=== PATIENT | male | born 1955 | race Caucasian/White ===

== ENCOUNTER → 2018-05-03 | Outpatient (CLI) | payer OTHER ==
[~2018-05-03] MED LIST: AMLO5TAB2 PO; GABA300C10 PO
[2018-05-03 13:46] LABS: BASOPHILS # (AUTO) 0.05 x10^3/uL (0-0.1); BASOPHILS % (AUTO) 1 % (0-1); EOSINOPHILS # (AUTO) 0.19 x10^3/uL (0-0.4); EOSINOPHILS % (AUTO) 3 % (1-7); LYMPHOCYTES # (AUTO) 1.69 x10^3/uL (1-3.4); LYMPHOCYTES % (AUTO) 26 % (22-44); MD NO; MEAN CORPUSCULAR HEMOGLOBIN 30.6 pg (27.5-34.5); MEAN CORPUSCULAR HGB CONC 34.1 g/dL (33.2-36.2); MEAN CORPUSCULAR VOLUME 89.7 fL (81-97); MEAN PLATELET VOLUME 9.1 fL (7.4-10.4); MONOCYTES # (AUTO) 0.76 x10^3/uL (0.2-0.8); MONOCYTES % (AUTO) 12 % (2-9); NEUTROPHILS # (AUTO) 3.75 x10^3/uL (1.8-6.8); NEUTROPHILS % (AUTO) 58 % (42-75); PLATELET COUNT 265 x10^3/uL (130-400); RED CELL DISTRIBUTION WIDTH 13.7 % (9.4-14.8)
[2018-05-03 13:55] LABS: INTERNATIONAL NORMALIZED RATIO 1.03 (0.93-1.1); PROTHROMBIN TIME 10.7 Seconds (9.6-11.5)
[2018-05-03 13:59] LABS: ALANINE AMINOTRANSFERASE 36 U/L (12-78); ANION GAP 7 mmol/L (5-15); CALCIUM 9.2 mg/dL (8.5-10.1); CHLORIDE 105 mmol/L (98-107); CREATININE 0.91 mg/dL (0.7-1.3)
[2018-05-03 14:01] LABS: ALKALINE PHOSPHATASE 91 U/L (45-117); BILIRUBIN,TOTAL 0.9 mg/dL (0.2-1.0); TOTAL PROTEIN 7.6 g/dL (6.4-8.2)
== END | disposition home or self-care (01) ==
LOC: STAR 12:29
PROVIDERS: ATTEND Neurological Surgery
DX: Z01.818 Encounter for other preprocedural examination (principal); M47.12 Other spondylosis with myelopathy, cervical region
CPT/HCPCS: 36415; 71046; 80053; 85025; 85610; 85730; 93005

== ENCOUNTER 2018-05-16 06:51 | Inpatient (IN) | payer OTHER ==
[~2018-05-16] VITALS: Ht 198.1 cm; Wt 126.6 kg
[2018-05-16] MEDS ORDERED: BUPIVACAINE/PF-EPI 0.5% 1:200K ONE (07:04)
[2018-05-16] MEDS ORDERED: BACITRACIN 50,000 UNIT ONE (07:04)
[2018-05-16] MEDS ORDERED: THROMBIN 5,000 UNIT VIAL TP ONE (07:04)
[2018-05-16] MEDS ORDERED: LACTATED RINGERS 1,000 ML IV SCH (07:56)
[2018-05-16] MEDS ORDERED: LIDOCAINE-MPF 1%, 2ML INFIL ONE (08:00)
[2018-05-16] MEDS ORDERED: LIDOCAINE-MPF 1%, 2ML ONE (08:04)
[2018-05-16] MEDS ORDERED: GABAPENTIN 300 MG CAPSULE PO ONE (09:00)
[2018-05-16] MEDS ORDERED: ACETAMINOPHEN 500 MG TABLET PO ONE (09:00)
[2018-05-16] MEDS ORDERED: MIDAZOLAM 1 MG/ML, 2ML ONE (09:05)
[2018-05-16] MEDS ORDERED: PROPOFOL 10 MG/ML, 20ML ONE ×2 (09:07→13:27)
[2018-05-16] MEDS ORDERED: FENTANYL PF 250 MCG/5ML ONE (09:07)
[2018-05-16] MEDS ORDERED: LIDOCAINE-MPF 2% ,5ML ONE (09:07)
[2018-05-16] MEDS ORDERED: CEFAZOLIN 1,000 MG ONE ×3 (09:08→10:29)
[2018-05-16] MEDS ORDERED: ROCURONIUM 10MG/ML,5ML ONE (09:09)
[2018-05-16] MEDS ORDERED: DEXAMETHASONE 4 MG/ML, 1ML ONE ×2 (09:10)
[2018-05-16] MEDS ORDERED: APREPITANT 40 MG CAPSULE ONE (10:11)
[2018-05-16] MEDS ORDERED: PROPOFOL 50 ML ONE ×3 (10:21→12:24)
[2018-05-16] MEDS ORDERED: REMIFENTANIL 1 MG ONE ×2 (10:24→11:57)
[2018-05-16] MEDS ORDERED: SUCCINYLCHOLINE 20 MG/ML, 10ML ONE (10:29)
[2018-05-16] MEDS ORDERED: ONDANSETRON 2MG/ML, 2ML ONE ×2 (13:24)
[2018-05-16] MEDS ORDERED: FENTANYL PF 100 MCG/2ML IV PRN (14:00)
[2018-05-16] MEDS ORDERED: OXYcodone 5 MG/5 ML ORAL.SOL UDC PO PRN (14:00)
[2018-05-16] MEDS ORDERED: LORazepam 2 MG/ML, 1ML IVPush PRN (14:00)
[2018-05-16] MEDS ORDERED: PROMETHAZINE 25 MG/ML, 1ML IV PRN (14:00)
[2018-05-16] MEDS ORDERED: HALOPERIDOL 5 MG/ML IV PRN (14:00)
[2018-05-16] MEDS ORDERED: MEPERIDINE/PF 25MG/0.5ML IVPush PRN (14:00)
[2018-05-16] MEDS ORDERED: OXYcodone 5 MG/5 ML ORAL.SOL UDC ONE (14:05)
[2018-05-16] MEDS ORDERED: HYDROmorphone 2 MG/ML, 1ML ONE (14:05)
[2018-05-16] MEDS: HYDROmorphone 1 MG/ML, 1ML IV PRN ×4 (14:07→14:55)
[2018-05-16] MEDS ORDERED: CYCLOBENZAPRINE 10 MG TABLET ONE (14:24)
[2018-05-16] MEDS ORDERED: CYCLOBENZAPRINE 10 MG TABLET PO ONE (14:30)
[2018-05-16] MEDS ORDERED: ARTIFICIAL TEARS 15 DROP/ML BOTTLE EACHEYE PRN (16:30)
[2018-05-16] MEDS ORDERED: OXYcodone/APAP 5/325MG TABLET PO PRN (16:30)
[2018-05-16] MEDS ORDERED: PROMETHAZINE 25 MG/ML, 1ML IM PRN (16:30)
[2018-05-16] MEDS ORDERED: MAGNESIUM HYDROXIDE 8%, 30ML UDC PO PRN (16:30)
[2018-05-16] MEDS ORDERED: morphine SULFATE 10 MG/ML, 1ML IV PRN (16:30)
[2018-05-16] MEDS ORDERED: BISACODYL 10 MG SUPP PR PRN (16:30)
[2018-05-16] MEDS ORDERED: ONDANSETRON 2MG/ML, 2ML IV PRN (16:30)
[2018-05-16] MEDS ORDERED: ALBUTEROL SULFATE 2.5 MG/3 ML HHN PRN (16:30)
[2018-05-16] MEDS ORDERED: METHOCARBAMOL 750 MG TABLET PO PRN (16:30)
[2018-05-16] MEDS: NS + 20MEQ KCL 1,000 ML IV SCH (16:58)
[2018-05-16] MEDS ORDERED: CYCLOBENZAPRINE 10 MG TABLET PO PRN (18:00)
[2018-05-16 18:47] VITALS: BP 133/81
[2018-05-16] MEDS ORDERED: MONTELUKAST 10 MG TABLET PO SCH (21:00)
[2018-05-16] MEDS: CEFAZOLIN PMX 1GM/50ML 50 ML IVPB SCH (21:24)
[2018-05-17 01:06] VITALS: BP 135/56
[2018-05-17 04:59] VITALS: BP 143/84
[2018-05-17] MEDS: CEFAZOLIN PMX 1GM/50ML 50 ML IVPB SCH (05:04)
[2018-05-17 05:10] LABS: BASOPHILS # (AUTO) 0.01 x10^3/uL (0-0.1); BASOPHILS % (AUTO) 0 % (0-1); EOSINOPHILS # (AUTO) 0.01 x10^3/uL (0-0.4); EOSINOPHILS % (AUTO) 0 % (1-7); LYMPHOCYTES # (AUTO) 0.61 x10^3/uL (1-3.4); LYMPHOCYTES % (AUTO) 5 % (22-44); MD NO; MEAN CORPUSCULAR HEMOGLOBIN 30.6 pg (27.5-34.5); MEAN CORPUSCULAR HGB CONC 33.6 g/dL (33.2-36.2); MEAN PLATELET VOLUME 9.6 fL (7.4-10.4); MONOCYTES # (AUTO) 0.76 x10^3/uL (0.2-0.8); MONOCYTES % (AUTO) 7 % (2-9); NEUTROPHILS # (AUTO) 9.99 x10^3/uL (1.8-6.8); NEUTROPHILS % (AUTO) 88 % (42-75); PLATELET COUNT 224 x10^3/uL (130-400); RED BLOOD COUNT 4.76 x10^6/uL (4.38-5.82); RED CELL DISTRIBUTION WIDTH 13.6 % (9.4-14.8)
[2018-05-17 05:23] LABS: ALBUMIN 3.3 g/dL (3.4-5.0); ANION GAP 7 mmol/L (5-15); CALCIUM 8.4 mg/dL (8.5-10.1); CHLORIDE 105 mmol/L (98-107); CREATININE 0.68 mg/dL (0.7-1.3)
[2018-05-17] MEDS ORDERED: LEVOTHYROXINE 25 MCG TABLET PO SCH (06:00)
[2018-05-17] MEDS: HYDROcodone/APAP 5/325 TABLET PO PRN ×2 (06:31→10:19)
[2018-05-17 07:20] VITALS: BP 142/78
[2018-05-17] MEDS: NS + 20MEQ KCL 1,000 ML IV SCH (08:00)
[2018-05-17] MEDS ORDERED: CYCL-259 PO (08:40)
[2018-05-17] MEDS ORDERED: HYDR-3240 PO (08:40)
[2018-05-17] MEDS ORDERED: SENNA/DOCUSATE TABLET PO SCH (09:00)
[2018-05-17] MEDS ORDERED: AMLODIPINE 5 MG TABLET PO SCH (09:00)
[2018-05-17] MEDS ORDERED: FLUTICASONE FUROATE 200MCG/INH INH SCH (09:00)
[2018-05-17] MEDS ORDERED: URSODIOL 300 MG CAPSULE PO SCH (09:00)
[2018-05-17 12:12] VITALS: BP 139/77
== END 2018-05-17 12:40 | disposition home or self-care (01) | DRG 472 ==
LOC: ORIP 06:51 → 4NOR 15:49 → DCLOUNGE 05-17 12:28
PROVIDERS: ADMIT Neurological Surgery; ATTEND Neurological Surgery
PROC: 0RT30ZZ Resection of Cervical Vertebral Disc, Open Approach (ICD-10-PCS; 2018-05-16)
PROC: 4A11X4G Monitoring of Peripheral Nervous Electrical Activity, Intraoperative, External Approach (ICD-10-PCS; 2018-05-16)
PROC: 0RG20A0 Fusion of 2 or more Cervical Vertebral Joints with Interbody Fusion Device, Anterior Approach, Anterior Column, Open Approach (ICD-10-PCS; principal; 2018-05-16 10:00)
DX: M48.02 Spinal stenosis, cervical region (principal); M47.12 Other spondylosis with myelopathy, cervical region; M47.22 Other spondylosis with radiculopathy, cervical region; I10 Essential (primary) hypertension; M25.78 Osteophyte, vertebrae; M19.90 Unspecified osteoarthritis, unspecified site
CPT/HCPCS: 36415; 72040; 80048; 82040; 85025; 86850; 86900; C1713; C1776; J0690; J1100; J1170; J2250; J2270; J2405; J2704; J3010; J3480; J3490; J8501; J0330; J7120